=== PATIENT | female | born 1950 | race Caucasian/White ===

== ENCOUNTER 2016-10-12 15:23 | Emergency (ER) | payer MEDICARE, MEDICAID ==
[2016-10-12 15:58] VITALS: BP 144/71
--- NOTE | 2016-10-12 17:10 | UC ---
Upper Extremity HPI - HPI Summary HPI Summary: This is a 66 yo female with a h/o IDDM, COPD, HTN, HLD who presents with c/o L wrist pain. Pain started when she awoke from sleep 2 days ago and have become progressively worse. She has tried APAP at home without relief of her symptoms. She denies any other associated joint pain. No history of similar symptoms in the past. No history of gout. She has noted associated finger swelling in the affected hand. No fevers. - History of Current Complaint Chief Complaint: UCUpperExtremity Stated Complaint: LEFT ARM NO MOTION - Allergies/Home Medications Allergies/Adverse Reactions: Allergies Allergy/AdvReac Type Severity Reaction Status Date / Time Nitrofurantoin Allergy Severe Hives Verified 10/12/16 15:58 [From Macrodantin] Penicillins Allergy Severe Hives Verified 10/12/16 15:58 Home Medications: Home Medications Albiglutide [Tanzeum] 30 mg SC WEEKLY 10/12/16 [History Confirmed 10/12/16] Insulin Aspart [Novolog] 100 unit SC SEE INSTRUCTIONS 10/12/16 [History Confirmed 10/12/16] PMH/Surg Hx/FS Hx/Imm Hx Endocrine History Of: Reports: Diabetes, Dyslipidemia Cardiovascular History Of: Reports: Hypertension Respiratory History Of: Reports: COPD - Surgical History Surgical History: Yes Surgery Procedure, Year, and Place: Left Leg Vein Strip, 1986. Appendectomy, 1988. Tubal Ligation, 1982 - Family History Known Family History: Positive: None - Social History Alcohol Use: None Substance Use Type: None Smoking Status (MU): Heavy Every Day Tobacco Smoker Type: Cigarettes Amount Used/How Often: 1 PPD Length of Time of Smoking/Using Tobacco: 44 Years Have You Smoked in the Last Year: Yes Household Exposure Type: Cigarettes Review of Systems Constitutional: Negative Skin: Negative Eyes: Negative ENT: Negative Respiratory: Negative Cardiovascular: Negative Gastrointestinal: Negative Genitourinary: Negative Motor: Negative Neurovascular: Negative Musculoskeletal: Arthralgia, Decreased ROM Neurological: Negative Psychological: Negative All Other Systems Reviewed And Are Negative: Yes Physical Exam Triage Information Reviewed: Yes Appearance: Pain Distress - mild Vital Signs: Initial Vital Signs Temp 97 F 10/12/16 15:49 Pulse 62 10/12/16 15:49 Resp 22 10/12/16 15:49 BP 144/71 10/12/16 15:49 Pulse Ox 95 10/12/16 15:49 Vital Signs Reviewed: Yes Respiratory: Positive: Chest non-tender, Lungs clear. Negative: Crackles, Rhonchi, Wheezing Cardiovascular: Positive: RRR, No Murmur Musculoskeletal: Positive: Other: - some focal edema over radial wrist at at the base of the thumb with severe TTP, severe pain with any ROM Diagnostics - Laboratory Diagnostic Studies Completed/Ordered: XR L wrist - no fx, but evidence of soft tissue edema Upper Extremity Course/Dx - Course Course Of Treatment: This is a 66 yo female with multiple co-morbid conditions who presents with acute thumb/wrist pain. XR neg. Exam c/w tendinitis v gout. The severity of her pain and edema is more c/w gout. Patient would like to avoid steroid use. Will rx colchicine and recommend patient use a thumb spica for symptomatic relief - Differential Dx/Diagnosis Differential Diagnosis/HQI/PQRI: Fracture (Closed), Strain, Sprain Provider Diagnoses: Acute gout L wrist Discharge - Discharge Plan Condition: Stable Disposition: HOME Prescriptions: Colchicine* [Colcrys*] 0.6 mg PO BID #30 tab Referrals: Non Staff,Doctor [Primary Care Provider] -
--- NOTE | 2016-10-12 18:37 | RAD ---
Indication: Left wrist pain. 3 views of the wrist demonstrates no fracture. No other bone or joint abnormality is identified. There is some calcifications on the volar aspect of the proximal carpal bones. IMPRESSION: NO FRACTURE OF THE WRIST IS NOTED. Some calcifications are noted on the volar aspect of the proximal row of the carpal bones.
== END 2016-10-12 19:16 | disposition home or self-care (01) ==
LOC: UCCORT 15:23
DX: M10.032 Idiopathic gout, left wrist (principal); E11.9 Type 2 diabetes mellitus without complications; Z79.4 Long term (current) use of insulin; Z88.1 Allergy status to other antibiotic agents; Z88.0 Allergy status to penicillin; F17.210 Nicotine dependence, cigarettes, uncomplicated
CPT/HCPCS: 99213; G0463

== ENCOUNTER 2016-11-11 11:20 | Emergency (ER) | payer MEDICARE, MEDICAID ==
[2016-11-11 12:24] VITALS: BP 140/66
--- NOTE | 2016-11-11 13:45 | UC ---
Throat Pain/Nasal Ryan HPI - HPI Summary HPI Summary: SINCE ONE AM HAD SORE THROAT COUGH AND TONGUE SWELLING. EXPOSED TO STREP. TONGUE HAS WHITE SPOTS ON IT. HAD RECENTLY FINISHED A PRESCRIPTION FOR CIPRO. NO FEVER. PATIENT IS A PACK PER DAY SMOKER. - History of Current Complaint Chief Complaint: UCRespiratory Stated Complaint: THROAT Time Seen by Provider: 11/11/16 12:20 Hx Obtained From: Patient Onset/Duration: Gradual Onset, Lasting Hours, Still Present Severity: Moderate Cough: Productive Associated Signs & Symptoms: Positive: Hoarseness, Nasal Discharge - Epiglottits Risk Factors Epiglottis Risk Factors: Negative - Allergies/Home Medications Allergies/Adverse Reactions: Allergies Allergy/AdvReac Type Severity Reaction Status Date / Time Nitrofurantoin Allergy Severe Hives Verified 11/11/16 12:16 [From Macrodantin] Penicillins Allergy Severe Hives Verified 11/11/16 12:16 Home Medications: Home Medications Ciprofloxacin TAB* [Cipro 250 MG Tab*] 250 mg PO BID 11/11/16 [History Confirmed 11/11/16] PMH/Surg Hx/FS Hx/Imm Hx Previously Healthy: Yes Endocrine History Of: Reports: Diabetes, Dyslipidemia Cardiovascular History Of: Reports: Hypertension Respiratory History Of: Reports: COPD - Surgical History Surgical History: Yes Surgery Procedure, Year, and Place: Left Leg Vein Strip, 1986. Appendectomy, 1988. Tubal Ligation, 1982 - Family History Known Family History: Positive: None - Social History Occupation: Retired Lives: With Family Alcohol Use: None Substance Use Type: None Smoking Status (MU): Heavy Every Day Tobacco Smoker Type: Cigarettes Amount Used/How Often: 1 PPD Length of Time of Smoking/Using Tobacco: 44 Years Have You Smoked in the Last Year: Yes Household Exposure Type: Cigarettes Cessation Counseling: Counseled 3+Min - 10 Min Review of Systems Constitutional: Negative Skin: Negative Eyes: Negative ENT: Sore Throat, Nasal Discharge, Other - MILD TONGUE SWELLIHNG WITH WHITE SPOTS Respiratory: Cough Cardiovascular: Negative Gastrointestinal: Negative Genitourinary: Negative Motor: Negative Neurovascular: Negative Musculoskeletal: Negative Neurological: Negative Psychological: Negative All Other Systems Reviewed And Are Negative: Yes Physical Exam Triage Information Reviewed: Yes Appearance: Well-Appearing, No Pain Distress, Well-Nourished Vital Signs: Initial Vital Signs Temp 98.4 F 11/11/16 12:20 Pulse 83 11/11/16 12:20 Resp 20 11/11/16 12:20 BP 140/66 11/11/16 12:20 Pulse Ox 97 11/11/16 12:20 Vital Signs Reviewed: Yes Eye Exam: Normal ENT: Positive: Normal ENT inspection, Hearing grossly normal, Pharynx normal, Nasal congestion, TMs normal Dental Exam: Normal Neck exam: Normal Neck: Positive: Supple, Nontender, No Lymphadenopathy Respiratory Exam: Other - COUGH Respiratory: Positive: Chest non-tender, Lungs clear, Normal breath sounds, No respiratory distress, No accessory muscle use Cardiovascular Exam: Normal Cardiovascular: Positive: RRR, No Murmur, Pulses Normal Abdominal Exam: Normal Abdomen Description: Positive: Nontender, No Organomegaly Musculoskeletal Exam: Normal Neurological Exam: Normal Psychological Exam: Normal Skin Exam: Normal Throat Pain/Nasal Course/Dx - Differential Dx/Diagnosis Differential Diagnosis/HQI/PQRI: Otitis Media, Pharyngitis, URI Provider Diagnoses: ORAL CANDIDIASIS. UPPER RESPIRATORY INFECTION Discharge - Discharge Plan Condition: Stable Disposition: HOME Prescriptions: Benzonatate CAP* [Tessalon 100 MG CAP*] 100 mg PO TID PRN #15 cap PRN Reason: Cough Nystatin SUSPENSION* 100,000 unit MT BID #28 ml Patient Education Materials: How to Stop Smoking (ED), Oral Candidiasis (ED), Upper Respiratory Infection (ED) Referrals: [facility] [place] [facility] [place] [facility] [place]] Non Staff,Doctor [Primary Care Provider] -
== END 2016-11-11 13:49 | disposition home or self-care (01) ==
LOC: UCCORT 11:20
DX: B37.0 Candidal stomatitis (principal); J06.9 Acute upper respiratory infection, unspecified; Z88.1 Allergy status to other antibiotic agents; Z88.0 Allergy status to penicillin; E11.9 Type 2 diabetes mellitus without complications; E78.5 Hyperlipidemia, unspecified; I10 Essential (primary) hypertension; J44.9 Chronic obstructive pulmonary disease, unspecified; F17.210 Nicotine dependence, cigarettes, uncomplicated; Z71.6 Tobacco abuse counseling
CPT/HCPCS: 87502; 87651; 99212; G0463

== ENCOUNTER 2018-01-14 14:00 | Emergency (ER) | payer MEDICARE, OTHER ==
[2018-01-14 14:27] VITALS: BP 136/54
--- NOTE | 2018-01-14 15:00 | UC ---
Back Pain HPI - HPI Summary HPI Summary: Pt c/o low back pain s/p falling from sitting position while putting on CAM boot on. Pt states that low back is "achy across low back around to lower pelvis". Denies saddle anesthesia, difficulty passing urine or lower extremity weakness. c/o constipation X 2 days. - History of Current Complaint Hx Obtained From: Patient ?: No Onset/Duration: Sudden Onset, Lasting Weeks Timing: Constant Severity Initially: Mild Severity Currently: Severe Pain Intensity: 9 Back Pain: Is Discrete @ - low back, Radiates To - anterior pelvis Character: Dull, Aching, Stiffness Aggravating Factor(s): Movement Alleviating Factor(s): Rest, Position Associated Signs And Symptoms: Positive: Negative - Risk Factors AAA Risk Factors: Hypertension TAD Risk Factors: Hypertension Cauda Equina Risk Factors: Negative Epidural Abscess Risk Factors: Negative <Precious Eller NP - Last Filed: 01/14/18 15:41> <Aubrey Tovar - Last Filed: 01/15/18 15:29> - History of Current Complaint Chief Complaint: UCBackPain Stated Complaint: S/P FALL BACK PAIN Time Seen by Provider: 01/14/18 14:21 - Allergies/Home Medications Allergies/Adverse Reactions: Allergies Allergy/AdvReac Type Severity Reaction Status Date / Time nitrofurantoin Allergy Hives Verified 01/14/18 16:50 [From Macrodantin] Penicillins Allergy Hives Verified 01/14/18 16:50 PMH/Surg Hx/FS Hx/Imm Hx Previously Healthy: No - obesity, HTN Cardiovascular History: Hypertension - Surgical History Surgical History: Yes Surgery Procedure, Year, and Place: Left Leg Vein Strip, 1986. Appendectomy, 1988. Tubal Ligation, 1982 - Family History Known Family History: Positive: Cardiac Disease - Social History Occupation: Retired Lives: With Family Alcohol Use: None Substance Use Type: None Smoking Status (MU): Heavy Every Day Tobacco Smoker Type: Cigarettes Amount Used/How Often: 1 PPD Length of Time of Smoking/Using Tobacco: 44 Years Have You Smoked in the Last Year: Yes Household Exposure Type: Cigarettes <Precious Eller NP - Last Filed: 01/14/18 15:41> Review of Systems Constitutional: Negative Skin: Negative Eyes: Negative ENT: Negative Respiratory: Negative Cardiovascular: Negative Gastrointestinal: Negative Genitourinary: Negative Motor: Decreased ROM - low back Neurovascular: Negative Musculoskeletal: Arthralgia, Decreased ROM - low back, Myalgia Neurological: Negative Psychological: Negative Is Patient Immunocompromised?: No All Other Systems Reviewed And Are Negative: Yes <Precious Eller NP Last Filed: 01/14/18 15:41> Physical Exam Triage Information Reviewed: Yes Appearance: Obese Vital Signs: Initial Vital Signs Temp 97.9 F 01/14/18 14:18 Pulse 58 01/14/18 14:18 Resp 01/14/18 14:18 BP 136/54 01/14/18 14:18 Pulse Ox 95 01/14/18 14:18 Vital Signs Reviewed: Yes Eye Exam: Normal ENT Exam: Normal Neck exam: Normal Respiratory Exam: Normal Cardiovascular Exam: Normal Abdominal Exam: Normal Abdomen Description: Positive: Nontender, Soft Bowel Sounds: Positive: Present Musculoskeletal: Positive: Strength Limited @ - lower extremity, ROM Limited @ - low back, Other: - left foot prior fracture Neurological Exam: Normal Psychological Exam: Normal Skin Exam: Normal <Precious lEler NP - Last Filed: 01/14/18 15:41> Vital Signs: Initial Vital Signs Temp 97.9 F 01/14/18 14:18 Pulse 58 01/14/18 14:18 Resp 01/14/18 14:18 BP 136/54 01/14/18 14:18 Pulse Ox 95 01/14/18 14:18 <Aubrey Tovar - Last Filed: 01/15/18 15:29> Diagnostics - Radiology No standard instances Radiology Interpretation Completed By: Radiologist - IMPRESSION: NO ACUTE BONY FINDINGS. MINOR ARTHRITIC CHANGE. SUSPECT CHOLELITHIASIS. <Precious Eller NP Last Filed: 01/14/18 15:41> Back Pain Course/Dx - Differential Dx/Diagnosis Differential Diagnosis/HQI/PQRI: Fracture, Herniated Disc, Strain, Sprain Provider Diagnoses: Low back pain. constipation <Precious Eller NP Last Filed: 01/14/18 15:41> Discharge - Sign-Out/Discharge Documenting (check all that apply): Discharge/Admit/Transfer - Billing Disposition and Condition Condition: STABLE Disposition: Home <Rafita [employer]PER[employer]OR,Precious Lakhani - Last Filed: 01/14/18 15:41> - Billing Disposition and Condition Condition: STABLE Disposition: Home <Aubrey Tovar - Last Filed: 01/15/18 15:29> - Discharge Plan Condition: Stable Disposition: HOME Prescriptions: Cyclobenzaprine TAB* [Flexeril 10 MG TAB*] 10 mg PO TID PRN #21 tab PRN Reason: Pain Patient Education Materials: Constipation (DC), Acute Low Back Pain (ED), Lower Back Exercises (ED) Referrals: Eric Infante MD [Primary Care Provider] - If Needed Aj Cruz MD [Medical Doctor] - If Needed Additional Instructions: Per institutional requirements, I have reviewed the chart, however, I was not consulted specifically or made aware of this patient by the above midlevel provider. I did not personally evaluate, interact with , or disposition this patient. Please note that my shift ended at 2:30 PM and this patient was discharged much later than that.
--- NOTE | 2018-01-14 15:18 | RAD ---
INDICATION: Fall from seated position. Pain COMPARISON: None TECHNIQUE: Routine PA, lateral, and oblique imaging was performed . FINDINGS: Bones: There are no acute bony findings. There are minor arthritic change with endplate sclerosis. Alignment: There is minor kyphosis at thoracolumbar junction Disc spaces: The disc spaces are well-maintained Soft tissues: There are aortic calcifications. There is a calcification right upper quadrant which is likely large gallstone. IMPRESSION: NO ACUTE BONY FINDINGS. MINOR ARTHRITIC CHANGE. SUSPECT CHOLELITHIASIS.
== END 2018-01-14 15:37 | disposition home or self-care (01) ==
LOC: UCCORT 14:00
DX: M54.5 Low back pain (principal); I10 Essential (primary) hypertension; Z88.1 Allergy status to other antibiotic agents; Z88.0 Allergy status to penicillin; F17.210 Nicotine dependence, cigarettes, uncomplicated; K59.00 Constipation, unspecified; W19.XXXA Unspecified fall, initial encounter; Y93.89 Activity, other specified; Y92.9 Unspecified place or not applicable
CPT/HCPCS: 72110; 99212; G0463

== ENCOUNTER 2018-01-21 11:05 | Emergency (ER) | payer MEDICARE, OTHER ==
[2018-01-21 11:38] VITALS: BP 130/53
--- NOTE | 2018-01-21 12:12 | UC ---
Complaint Female HPI - HPI Summary HPI Summary: 67 yo female presents with bladder discomfort, urinary frequency, and burning with urination for the last 2 days. She tells me that she gets "a lot of UTIs" - last one was about 4-6 months ago. Her symptoms feel the same as usual. Today she started having right flank pain. Denies fever, chills, abdominal pain, n/v/d /c, or blood in urine. - History Of Current Complaint Chief Complaint: UCGU Stated Complaint: URINARY Time Seen by Provider: 01/21/18 12:11 Hx Obtained From: Patient Onset/Duration: Gradual Onset Timing: Constant Severity Initially: Moderate Severity Currently: Moderate Pain Intensity: 8 Pain Scale Used: 0-10 Numeric - Allergies/Home Medications Allergies/Adverse Reactions: Allergies Allergy/AdvReac Type Severity Reaction Status Date / Time nitrofurantoin Allergy Hives Verified 01/21/18 11:31 [From Macrodantin] Penicillins Allergy Hives Verified 01/21/18 11:31 PMH/Surg Hx/FS Hx/Imm Hx Endocrine History: Diabetes, Dyslipidemia Cardiovascular History: Hypertension - Surgical History Surgical History: Yes Surgery Procedure, Year, and Place: Left Leg Vein Strip, 1986. Appendectomy, 1988. Tubal Ligation, 1982 - Family History Known Family History: Positive: None, Cardiac Disease - Social History Occupation: Retired Lives: Alone Alcohol Use: None Substance Use Type: None Smoking Status (MU): Heavy Every Day Tobacco Smoker Type: Cigarettes Amount Used/How Often: 1 PPD Length of Time of Smoking/Using Tobacco: 44 Years Have You Smoked in the Last Year: Yes Household Exposure Type: Cigarettes Review of Systems Constitutional: Negative Skin: Negative Respiratory: Negative Cardiovascular: Negative Gastrointestinal: Negative Genitourinary: Dysuria, Frequency Neurovascular: Negative Neurological: Negative Psychological: Negative All Other Systems Reviewed And Are Negative: Yes Physical Exam - Summary Physical Exam Summary: GENERAL: NAD. WDWN. No pain distress. SKIN: No rashes, sores, lesions, or open wounds. NECK: Supple. Nontender. No lymphadenopathy. CHEST: No accessory muscle use. Breathing comfortably and in no distress. CV: Pulses intact. Brisk cap refill. ABDOMEN: Soft. NTTP. Mild right CVA tenderness. Bowel sounds present NEURO: Alert. CN II-XII grossly intact. PSYCH: Age appropriate behavior. Triage Information Reviewed: Yes Vital Signs: Initial Vital Signs Temp 98.3 F 01/21/18 11:33 Pulse 53 01/21/18 11:33 Resp 20 01/21/18 11:33 BP 130/53 01/21/18 11:33 Pulse Ox 95 01/21/18 11:33 Laboratory Tests 01/21/18 11:46 POC Urine Color Yellow POC Urine Clarity Clear POC Urine pH 5.5 POC Ur Specif [place] 1.015 POC Urine Protein Trace A POC Ur Glucose (UA) Negative POC Urine Ketones Trace A POC Urine Blood Negative POC Urine Nitrite Negative POC Urine Bilirubin Negative POC Urine Urobilinogen 1.0 POC U Leukocyte Esteras Negative Complaint Female Dx - Course Course Of Treatment: I discussed with the pt that her urine results did not show any sign of infection today, but she is adamant that this is a UTI as she has had many in the past. Given this, I will treat her for a UTI based on symptoms and send her urine for culture. - Differential Dx/Diagnosis Provider Diagnoses: Dysuria Discharge - Sign-Out/Discharge Documenting (check all that apply): Discharge/Admit/Transfer - Discharge Plan Condition: Stable Disposition: HOME Prescriptions: Sulfamethox/Trimethoprim DS* [Bactrim DS 800/160 TAB*] 1 tab PO BID #10 tab Patient Education Materials: Urinary Tract Infection in Women (ED) Referrals: SARAH Livingston [Primary Care Provider] - Additional Instructions: If you develop a fever, shortness of breath, chest pain, new or worsening symptoms - please call your PCP or go to the ED. 1) Your urine did not show signs of a UTI today, but I am treating you based on your symptoms and hx of UTIs. We will send your urine for culture and call you with results - Billing Disposition and Condition Condition: STABLE Disposition: Home
== END 2018-01-21 12:25 | disposition home or self-care (01) ==
LOC: UCCORT 11:05
DX: R30.0 Dysuria (principal); R35.0 Frequency of micturition; R10.9 Unspecified abdominal pain; F17.210 Nicotine dependence, cigarettes, uncomplicated; Z88.0 Allergy status to penicillin; Z88.1 Allergy status to other antibiotic agents; I10 Essential (primary) hypertension; E11.9 Type 2 diabetes mellitus without complications
CPT/HCPCS: 81003; 87086; 99212; G0463